=== PATIENT | female | born 1995 | race Caucasian/White ===

== ENCOUNTER 2023-01-01 00:34 | Emergency (ER) | payer OTHER ==
[~2023-01-01] VITALS: Ht 160 cm; Wt 75.7 kg
[2023-01-01 03:41] LABS: BILIRUBIN,URINE NEGATIVE (NEGATIVE); COLOR,URINE YELLOW (YELLOW); LEUKOCYTE ESTERASE ,URINE 2+ (NEGATIVE); NITRITE, URINE NEGATIVE (NEGATIVE); PH,URINE 7.5 (5.0-8.0); PROTEIN,URINE 2+ mg/dl (NEGATIVE); UGLUCOSE NEGATIVE (NEGATIVE); UROBILINOGEN,URINE 0.2 EU/dL (0.2)
[2023-01-01 03:45] LABS: BACTERIA,URINE Rare /HPF (None Seen); SQUAMOUS EPITHELIAL CELL,UR Few /HPF (None Seen)
[2023-01-01] MEDS ORDERED: NITR100C6 PO (03:56)
--- NOTE | 2023-01-01 04:27 | NUR ---
Patient discharged to home in stable condition. Written and verbal after care instructions given. Patient verbalizes understanding of instruction.
[2023-01-01 04:28] VITALS: BP 122/78
== END 2023-01-01 04:28 | disposition home or self-care (01) ==
LOC: ER 00:57
DX: N39.0 Urinary tract infection, site not specified (principal); Z79.899 Other long term (current) drug therapy
CPT/HCPCS: 81001; 84703-TC; 87086-TC

== ENCOUNTER 2023-06-05 08:00 | Emergency (ER) | payer OTHER ==
[~2023-06-05] VITALS: Ht 160 cm; Wt 73.0 kg
[~2023-06-05 08:00] MED LIST: NITR100C6 PO
[2023-06-05 08:04] VITALS: BP 128/64; TEMP 98.4; O2SAT 98
[2023-06-05] MEDS ORDERED: CEPH500C2 PO (08:16)
[2023-06-05] MEDS ORDERED: CEPHALEXIN MONOHYDRATE 500 MG CAPSULE PO ONE ×2 (08:24→08:30)
== END 2023-06-05 08:28 | disposition home or self-care (01) ==
LOC: ER 08:08
DX: L03.011 Cellulitis of right finger (principal); Z60.2 Problems related to living alone